=== PATIENT | male | born 1995 | race African-American/Black ===

== ENCOUNTER 2017-12-31 05:11 | Emergency (ER) | payer SELFPAY ==
[~2017-12-31] VITALS: Ht 170.2 cm; Wt 74.8 kg
[~2017-12-31 05:11] MED LIST: ALBUTEROL SULF8.5 GM INH; DOXYCYCLINE MO100 MG PO
[2017-12-31 05:25] VITALS: BP 130/78
--- NOTE | 2017-12-31 05:54 | Emergency Room Report ---
History of Present Illness General Chief Complaint: Upper Extremity Injury Source: Patient Present Illness HPI 22YO M with pain to right hand after accidentally hitting top of hand on dresser while making his bed. C/o pain to radial side of hand overlying index and middle metacarpals Able to make fist, extend fingers albeit with pain No pain to wrist, forearm Allergies: Coded Allergies: No Known Allergies (Unverified , 12/31/17) Patient History Past Medical History: none Past Surgical History: none Pertinent Family History: none Social History: Denies: smoking, alcohol use, drug use Immunizations: UTD Reviewed Nursing Documentation: PMH: Agreed; PSxH: Agreed Nursing Documentation-PMH Hx Asthma: Yes Review of Systems All Other Systems: negative except mentioned in HPI Physical Exam Vital Signs Date Time Temp Pulse Resp B/P (MAP) Pulse Ox O2 Delivery O2 Flow Rate FiO2 12/31/17 05:15 98.5 80 16 131/79 97 98.4 12/31/17 05:25 Room Air Sp02 EP Interpretation: reviewed, normal General Appearance: normal inspection, well appearing, no apparent distress, alert, GCS 15, non-toxic Head: normocephalic, atraumatic Eyes: bilateral eye PERRL, bilateral eye EOMI ENT: normal ENT inspection, hearing grossly normal, normal pharynx, no angioedema, normal voice, TMs + canals normal, uvula midline, moist mucus membranes Neck: normal inspection, full range of motion, supple, thyroid normal, no meningismus, no bony tend Respiratory: normal inspection, lungs clear, normal breath sounds, no rhonchi, no respiratory distress, no retraction, no accessory muscle use, no wheezing, speaking full sentences Cardiovascular #1: regular rate, rhythm, no edema, no JVD, normal capillary refill Gastrointestinal: normal inspection, normal bowel sounds, non tender, soft, no mass, no peritonitis, non-distended, no guarding, no hernia, no pulsatile mass Genitourinary: no CVA tenderness Musculoskeletal: normal inspection, back normal, normal range of motion, no calf tenderness, pelvis stable, Britta's Sign negative, other - Right hand: obvious swelling/redness to dorsum of hand over 2nd/3rd metacarapls. 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 Rx Motrin RICE Close PMD followup as needed ER course: Patient has remained stable during ED stay. Disposition: Patient is to be discharged to home. Prescriptions given are motrin Patient is instructed to follow up with their primary care doctor within 5 days. Strict return precautions discussed with patient such as fever, chills, worsening/severe pain, nausea, vomiting, which may indicate severe illness. Patient verbalizes understanding and agrees with plan. Please note that this Emergency Department Report was dictated using [employer] machine operator technology software, occasionally this can lead to erroneous entry secondary to interpretation by the dictation equipment Other X-Ray Diagnostic Results Other X-Ray Diagnostic Results : X-Ray ordered: Right hand # of Views/Limited Vs Complete: 3 View Indication: Pain EP Interpretation: Yes Interpretation: no dislocation, no soft tissue swelling, no fractures Impression: No acute disease Electronically Signed by: Dr Teressa Thomas MD Last Vital Signs Date Time Temp Pulse Resp B/P (MAP) Pulse Ox O2 Delivery O2 Flow Rate FiO2 12/31/17 05:25 98.2 84 15 130/78 99 Room Air 98.2 Status: improved Disposition: HOME, SELF-CARE Scripts Ibuprofen* (MOTRIN*) 600 Mg Tablet 600 MG ORAL THREE TIMES A DAY for hand pain for 7 Days, #30 TAB 0 Refills Prov: TERESSA THOMAS M.D. 12/31/17 Referrals: NOT CHOSEN [facility]/,REFERRING (PCP) TERESSA THOMAS M.D. Dec 31, 2017 05:54
[2017-12-31] MEDS ORDERED: Norco 5mg/325mg tab ORAL ONE (06:00)
[2017-12-31] MEDS ORDERED: IBUPROFEN600 MG ORAL (06:16)
[2017-12-31 06:45] VITALS: BP 128/74
[2017-12-31 06:50] VITALS: BP 128/74
--- NOTE | 2017-12-31 08:44 | Diagnostic Imaging Report ---
Indication: Right hand pain Technique: Right hand 3 views Comparison: None Findings: Lateral view is limited by osseous overlap. There is a questionable linear lucency of the fifth metacarpal neck along the palmar aspect. Bone mineralization is normal. Soft tissues are grossly unremarkable. Impression: Limited by osseous overlap. Questionable linear lucency of the fifth metacarpal neck along the palmar aspect seen only on the lateral view. Possibility of nondisplaced fracture cannot be excluded. Short-term follow-up recommended as indicated. Findings discussed with Dr. Palmer.
== END 2017-12-31 06:50 | disposition home or self-care (01) ==
LOC: EMR 05:48
DX: S69.91XA Unspecified injury of right wrist, hand and finger(s), initial encounter (principal); W22.03XA Walked into furniture, initial encounter; Y92.003 Bedroom of unspecified non-institutional (private) residence as the place of occurrence of the external cause
CPT/HCPCS: 99283